=== PATIENT | female | born 1990 | race Caucasian/White ===

== ENCOUNTER 2025-04-24 13:02 | Emergency (ER) | payer BC, MEDICAID, SELFPAY ==
--- OUTSIDE RECORDS SUMMARY | 2025-04-24 13:04 | XMS_ITS | Clinical Summary ---
Author Organization [facility] Address [address] [place] [address] Care Team Providers Care Digital Production Manager Name Role Phone Stefani Iraheta MD Primary Care Provider Stefani Iraheta MD Unavailable [phone] Estephania Hicks MD Unavailable [phone] Val Bryant MD Unavailable [phone] Sorin Keene APRN TRIAL MANAGER Unavailable Unava ilable Allergies No known active allergies Medications Sertraline HCl (ZOLOFT PO) Take 100 mg by mouth daily Active levothyroxine (SYNTHROID/LEVOT HROID) 125 MCG tabletIndication s:Neftali's thyroiditis Take 1 tablet (125 mcg) by mouth daily 90 tablet 3 8 Active Additional Information Patient taking differently: 150 mcgOral DAILY, Reported on 02/21/2022 ferrous sulfate (FEROSUL) 325 (65 Fe) MG tablet Take 325 mg by mouth 2 times daily Active HYDROXYprogester one caproate (SHIELA) 250 MG/ML injection Inject 250 mg into the muscle every 7 days Active Vit-Fe Fumarate-FA ( MULTIVITAMIN W/IRON) 27-0.8 MG tablet Take 1 tablet by mouth daily Active Active Problems Patient Care Coordination No te Formatting of this note is d ifferent from the original. 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 2) History of after PTL - on 17-OHP- cervical lengths 3) Hypothyroid 4) uterine synechia 5) Anxiety- started Zoloft @ 16 weeks DEMOGRAPHICS: Patient contact info: [address] [facility] [phone] (home) Telephone Information: Partner's name: Baby's name: REFERRING PROVIDER(S): 1) Primary OB Provider: OGI 2) Other Sub-Specialty Provider: 3) Anticipated Pediatric Provider: CARE PLAN: 1) Ultrasounds - Growth q 3-4 weeks 04/11, 04/25 2) Other Imaging - Echo 04/12, repeat at 25 weeks (05/31)- no further follow up needed 3) surveillance - 4) Relocation - 5) care with - OGI 6) Labs - (look in media tab / care everywhere for results) Blood type: A+ HepBSAg: Neg Rubella: IMMUNE RPR: NR HIV: Neg GCT: Hgb: T/s preop: GBS: Vaccines Tdap: Flu: 7) care team and consultations - A) Genetic Counselor - B) Neonatology - C) Social Work - D) DELIVERY PLAN: 1) Hospital - 2) Gestational age - 3) Route - 4) Notifications in labor - 5) Specimen collection in labor / at delivery - (cord blood for karyotype & [facility]) Consent?? BABY PLAN: 1) Baby to go to NICU, Nursery (presuming no unforseen reason for NICU admit) 2) Imaging to be done - A) immediately after - B) prior to hospital discharge - post-levi echocardiogram is recommended to evaluate pulmonary valve annulus. Post- echocardiogram should be performed within 24-48 hours of life. 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 labor 04/25/2014 S/P section 04/25/2014 Resolved Problems Problem Noted Date Diagnosed Date Resolved Date Hypothyroidism 11/13/2016 12/02/2016 Hypothyroidism 06/13/2014 10/30/2015 Social History Tobacco Use Types Packs/Day Years Used Date Smoking Tobacco: Never Smokeless Tobacco: Never Alcohol Use Standard Drinks/Week Comments No 0 (1 standard drink = 0.6 oz pur e alcohol) Phoenix Depression Scale Answer Date Recorded Phoenix Depression Score 0 09/02/2020 Last EPDS Self Harm Result Not on file 09/02 Adolescent Education Answer Date Record ed Getting School Help Needed Not on file 07/20 Comments No Sex and Gender Information Value Date Recorded Sex Assigned at Not on file Legal Sex Female 4:33 AM PAPER ROLLER Gender Identity Not on file Sexual Orientation Not on file Last Filed Vital Signs Vital Sign Reading Time Taken Comments Blood Pressure 120/68 02/27/2022 1:00 PM CDT Pulse 72 02/21/2022 11:44 AM CDT Temperature 36.8 C (98.24 F) 02/27/2022 12:48 PM CDT Respiratory Rate 16 02/27/2022 1:00 PM CDT Oxygen Saturation 99% 09/02/2020 4:00 AM PAPER ROLLER Inhaled Oxygen Concentration - - Weight 74.8 kg (165 lb) 09/01/2020 5:32 AM PAPER ROLLER Height 172.7 cm (5' 8) 09/01/2020 5:32 AM PAPER ROLLER Body Mass Index 25.09 09/01/2020 5:32 AM PAPER ROLLER Plan of Treatment Not on file Medical Devices Implanted Type Area Drug And Alcohol Treatment Specialist Device Identifier Shelf Expiration Date Model / Serial / Lot Imp Breast 350ml Gel Round Mp [id number] Implanted:Qty : 1 on 12/13/2016 by Sadiq Damon MD at [facility] Breast Implant/Tiss ue Video Tape Transferrer Left: [employer] 10/06/2021 [id number] C / [id number] / [id number] Imp Breast 350ml Gel Round Mp [id number] Implanted:Qty : 1 on 12/13/2016 by Sadiq Damon MD at [facility] Breast Implant/Tiss ue Video Tape Transferrer Right: Breast [employer] 10/06/2021 [id number] C / [id number] Advance Directives For more information, please contact: [phone] * Full Code (Latest Code Status on File) Date Activated Date Inactivated Comments 09/02/2020 12:57 AM 09/04/2020 2:11 PM All basic and advanced life-sustaining interventions are performed as appropriate Question Answer Comments Code status determined by: Discussion with patie nt/ legal decision maker Care Teams Digital Production Manager Relationship Specialty Start Date End Date Stefani Iraheta MD [address] [place] [address] PCP - General drawing in machine tender helper 11/18/13 Stefani Iraheta MD [address] [place] [address] Referring Physician drawing in machine tender helper 12/24/13 [place] [address] [place] [address] Internal Medicine 08/08/15 Val Bryant MD [address] [place] [address] Maternal & Medicine 08/02/20 Sorin Keene APRN TRIAL MANAGER [address] [place] [address] Nurse Practitioner Nurse Practitioner 08/02/20
--- OUTSIDE RECORDS SUMMARY | 2025-04-24 13:04 | XMS_ITS | Encounter Summary ---
Author Organization [facility] Address [address] [place] [address]. [place] [address] Care Team Providers Care Soil Fertility Specialist Name Role Phone Stefani Iraheta MD Primary Care Provider [phone] Stefani Iraheta MD Unavailable [phone] Estephania Hicks MD Unavailable [phone] Val Bryant MD Unavailable [phone] Sorin Keene APRN FARM PLANNER Unavailable Unava ilable Val Bryant MD Unavailable [phone] Sorin Keene APRN FARM PLANNER Unavailable Unava ilable Val Bryant MD Unavailable [phone] Val Bryant MD Unavailable [phone] Encounter Details Date Type Department Care Team (Late st Contact Info) Description 08/07/2020 Orders Only [facility] [address] [phone] Stfeani Iraheta MD [address] [place] [address] Preop examination (Primary Dx) Social History Tobacco Use Types Packs/Day Years Used Date Smoking Tobacco: Never Smokeless Tobacco: Never Alcohol Use Standard Drinks/Week Comments No 0 (1 standard drink = 0.6 oz pur e alcohol) Comments Yes Sex and Gender Information Value Date Recorded Sex Assigned at Not on file Legal Sex Female 4:33 AM MANAGER FIELD Gender Identity Not on file Sexual Orientation Not on file COVID-19 Exposure Response Date Recorded In the last month, have you been in contact with someone who was confirmed or suspected to have Coronavirus / COVID-19? No / Unsure 08/07/2020 2:06 PM CDT documented as of this encounter Plan of Treatment Not on file documented as of this encounter Results * (ABNORMAL) CBC with platelets (08/31/2020 11:06 AM MANAGER FIELD) WBC 5.0 4.0 - 11.0 10e9/L 08/31/2020 11:27 AM [facility] RBC Count 3.91 3.8 - 5.2 10e12/L 08/31/2020 11:27 AM [facility] Hemoglobin 10.9(L) 11.7 - 15.7 g/dL 08/31/2020 11:27 AM [facility] Hematocrit 33.5(L) 35.0 - 47.0 % 08/31/2020 11:27 AM [facility] MCV 86 78 - 100 fl 08/31/2020 11:27 AM [facility] MCH 27.9 26.5 - 33.0 pg 08/31/2020 11:27 AM [facility] MCHC 32.5 31.5 - 36.5 g/dL 08/31/2020 11:27 AM [facility] RDW 16.2(H) 10.0 - 15.0 % 08/31/2020 11:27 AM [facility] Platelet Count 239 150 - 450 10e9/L 08/31/2020 11:27 AM [facility] Blood specimen (specimen) 08/31/2020 11:06 AM MANAGER FIELD 08/31/2020 11:22 AM MANAGER FIELD us Stefani Iraheta MD LAB - BLOOD ORDERABLES Fi nal Result [facility] [address], [place] [address], [place] [phone] * Treponema Abs w Reflex to RPR and Titer (08/31/2020 11:06 AM MANAGER FIELD) Treponema Antibodies Nonreactive NR^Nonrea ctive 09/01/2020 9:[address] [facility] Comment: Methodology Change: Test performed on the DiaSorin Liaison XL by Treponema pallidum Total Antibodies Assay as of 01.04.2020. Blood specimen (specimen) 08/31/2020 11:06 AM MANAGER FIELD 08/31/2020 11:22 AM MANAGER FIELD us Stefani Iraheta MD LAB - BLOOD ORDERABLES Fi nal Result Performing Organization Address City/[facility]/ZIP Co de Phone Number [facility] [address] [place] [address] * ABO/Rh type and screen (08/31/2020 11:06 AM MANAGER FIELD) ABO A 08/31/2020 12:36 PM MANAGER FIELD [facility] RH(D) Pos [facility] Antibody Screen Neg 08/31/2020 12:36 PM MANAGER FIELD [facility] Test Valid Only At [facility] 08/31/2020 11:59 AM MANAGER FIELD [facility] Specimen Expires 09/03/2020 08/31/2020 11:59 AM MANAGER FIELD [facility] Blood specimen (specimen) 08/31/2020 11:06 AM MANAGER FIELD 08/31/2020 11:22 AM MANAGER FIELD us Stefani Iraheta MD LAB - BLOOD BANK TEST ORD ER Final Result [facility] [address] [address], [facility] [phone] documented in this encounter Visit Diagnoses Diagnosis Preop examination- Primary Preoperative examination, unspecified documented in this encounter Care Teams Soil Fertility Specialist Relationship Specialty Start Date End Date Stefani Iraheta MD [address] [place] [address] PCP - General oven press tender 11/18/13 Stefani Iraheta MD [address] [address] Referring Physician oven press tender 12/24/13 [place] [address] [place] [address] Internal Medicine 08/08/15 Val Bryant MD [address] [place] [address] Maternal & Medicine 08/02/20 Sorin Keene APRN FARM PLANNER [address] [place] [address] Nurse Practitioner Nurse Practitioner 08/02/20 Val Bryant MD [address] [place] [address] Assigned OBGYN Provider 09/09/21 02/02/22 Sorin Keene APRN FARM PLANNER Assigned Pediatric Specialist Provider 09/03/20 02/23/22 Val Bryant MD [address] [place] [address] Assigned OBGYN Provider 09/02/21 09/08/21 Val Bryant MD [address] [place] [address] Assigned OBGYN Provider 08/11/20 09/01/21 documented as of this encounter
--- OUTSIDE RECORDS SUMMARY | 2025-04-24 13:04 | XMS_ITS | Clinical Summary ---
Author Organization [facility] Address [address] [place] [address] Care Team Providers Care Casino Enforcement Agent Name Role Phone Jayshree Juarez MD Primary Care Provider Allergies Active Allergy Reactions Criticality Noted Date Comments Crab Hives High 03/09/2025 Tested Shrimp Hives High 03/09/2025 Tested Medications sertraline (ZOLOFT) 100 mg tabletIndicatio ns:Anxiety Take 1 Tablet (100 mg) by mouth once daily. 90 Tablet 3 08/19/20 24 Active levothyroxine (SYNTHROID) 100 mcg tabletIndicatio ns:Hypothyroidi sm due to Neftali thyroiditis Take 1 Tablet (100 mcg) by mouth before breakfast. 90 Tablet 3 08/20/20 24 Active EPINEPHrine (EPIPEN) 0.3 mg/0.3 mL auto-injectorIn dications:Shrim p allergy Inject 0.3 mg (1 Pen) intramuscular each time if needed for Allergic Reaction. 2 Each 3 08/23/20 24 Active valACYclovir (VALTREX) 1 gram tabletIndicatio ns:H/O cold sores TAKE 2 TABLETS (2 G) BY MOUTH 2 TIMES DAILY FOR 1 DAY. 4 Tablet 5 01/01/20 25 025 Discontinu ed(Reorder (E-cancel not sent)) valACYclovir 1 gram tabletIndicatio ns:H/O cold sores Take 2 Tablets (2 g) by mouth two times daily for 2 doses. 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 S/P section 04/25/2014 Hypothyroid 02/26/2013 Other specified screening(V28.89) 10/21 Pyelonephritis, unspecified 03/19/2007 Excessive growth affec ting management of mother, unspecified as to episode of care 03/18/2007 Herpes simplex with other specified complication s(054.79) Resolved Problems Problem Noted Date Diagnosed Date Resolved Date Threatened premature labor, unspecified as to episode of care 04/13/2007 08/06/2011 Depressive disorder, not elsewhere classified 03/18/20 07 02/26/2013 Extrinsic asthma, unspecified 03/18/2007 02/26/2013 Supervision of other normal 03/18/2007 Encounters Date Type Department Care Team Description 03/09/2025 4:05 PM CDT Office Visit [facility] [address] [place] [address] Jayshree Juarez MD Derm Problem (Mole check, mainly torso area) 03/09/2025 Travel 03/04/2025 Travel 03/01/2025 3:25 PM CDT Office Visit [facility] [address] [place] [address] Rachel Brand PA Lump 03/01/2025 Travel from Last 3 Months Immunizations Immunization Administration Dates Next Due COVID-19 VACCINE SPIKEVAX (M ODERNA 50MCG/0.5ML) 12YO+ PFS 07/30/2023 COVID-19 vaccine (Pfizer-Bio NTech 30mcg/0.3mL) PF, MDV 08/06/2021 Hepatitis A (Adult) 11/08/2010,09/27/2010 Hepatitis B (Adult) 11/08/2010,09/27/2010 Hepatitis B (Peds) 10/10/2003,08/30/2003 Human Papilloma Virus Vaccine 08/06/2011, 010,06/14/2010 INFLUENZA, IIV3 PF (AGE >= 6 MO) 08/06/2024 Influenza Intradermal PF 18-64 yrs 11/24/2012 Influenza, IIV3 (Age >=3 years) 08/06/2011,08/15 Influenza, IIV4 08/06/2023,08/08/2022 Influenza, IIV4 (=>6mos) MDV 08/03/2017 MMR 10/10/2003,08/30/2003 Tdap 02/15/2022, 0,03/11/2014,2010,08/06/2011 Family History Medical History Relation Name Comments Alcoholism Father Jerman Momin Depression Father Jerman Momin Diabetes Father Jerman Momin Psychiatric illness Father Jerman Momin depres midny Cancer-breast Maternal Aunt multiple aunts BRCA Cancer-ovarian Maternal Aunt multiple aunts BRCA BRCA2 Positive Mother Carmina Momin Hypertension Mother Carmina Momin BRCA2 Positive Sister Relation Name Status Comments Father Jerman Momin Maternal Aunt multiple aunts Alive Mother Carmina Momin Sister Social History Tobacco Use Types Packs/Day Years Used Date Smoking Tobacco: Never Smokeless Tobacco: Never Tobacco Cessation:Counseling Given: Yes Alcohol Use Standard Drinks/Week Comments Yes 0 (1 standard drink = 0.6 oz pur e alcohol) occ PHQ-2 Answer Date Recorded PHQ-2 TOTAL SCORE 0 08/19/2024 Social Connections Answer Date Recorded Do you often feel lonely or isolated from those around you? 0 08/19/2024 Financial Resource Strain Answer Date R ecorded Difficulty of Paying Living Expenses 3 08/19/2024 Difficulty of Paying Living Expenses Not on file 08/19/2024 Food Insecurity Answer Date Recorded Do you worry your food will run out before you are able to buy more? 1 08/19/2024 Transportation Needs Answer Date Record ed Does lack of transportation keep you from medica l appointments? 1 08/19/2024 Does lack of transportation keep you from work, meetings or getting things that you need? 1 08/19/2024 Housing Stability Answer Date Recorded What is your housing situation today? 1 08/19/2024 Utilities Answer Date Recorded Do you have trouble paying f or utilities (for example, heat, electricity, water, phone)? 1 08/19/2024 Comments No Sex and Gender Information Value Date Recorded Sex Assigned at Female 07/09/2021 10:22 AM CDT Legal Sex Female 5:40 AM MARKETING CONSULTANT Gender Identity Female 07/09/2021 10:22 AM CDT Sexual Orientation Straight 07/09/2021 10 :22 AM CDT Obstetrics History Para Term AB IAB SAB Ectopic Multiple Livin g Live Births 4 3 1 2 1 1 0 0 0 3 3 Date Outcome GA Total Labor Labor/2nd/3rd Weight Sex Type Anes PTL Brenda A1 A5 Name Clin 05/08 06 IAB 05/15 36w 4d 3.03 kg (6 lb 11 oz) M C-Sec tion Living Deandre 04/27 Term F CS-LT ranv Living 04/25 M C-Sec tion Living Last Filed Vital Signs Vital Sign Reading Time Taken Comments Blood Pressure 112/72 03/09/2025 4:12 PM CDT Pulse 72 03/09/2025 4:12 PM CDT Temperature 36.4 C (97.6 F) 10/28/2024 8:36 AM MARKETING CONSULTANT Respiratory Rate 16 03/20/2007 7:55 AM CDT Oxygen Saturation 100% 03/09/2025 4:12 PM CDT Inhaled Oxygen Concentration - - Weight 67 kg (147 lb 9.6 oz) 03/09/2025 4:12 PM CDT Height 172.1 cm (5' 7.75) 10/04/2024 9:55 AM CS T Body Mass Index 22.61 10/04/2024 9:55 AM MARKETING CONSULTANT Plan of Treatment Health Maintenance Due Date Last Done Comments COVID-19 vaccine series ( season) 2024 07/30/2023, 08/06/2021, 10/27/2020, Additional history exists Pap test for age 21-65 06/05/2025 2 (Completed outside of [facility]), 08/06/2011, 07/03/2007, Additional history exists Influenza Vaccine (#1) 2025 , 08/06/2023, 08/08/2022, Additional history exists Depression screening for age 12+ 08/19/2025 08/19/2024, 07/30/2023, 02/26/2019, Additional history exists BMI (ht and wt on same day) for age 18+ 10/04/2025 10/04/2024, 08/19/2024, 07/30/2023, Additional history exists Tetanus booster 02/16/2032 02/15/2022, 06/20, 03/11/2014, Additional history exists Hepatitis B series for 19+ Completed 11/08, 09/27/2010, 10/10/2003, Additional history exists HIV for age 15-65 Completed 07/30/2023 Hepatitis C screening for age 18-79 Completed 07/30/2023 Pneumococcal series for age 6-49 Aged Out No longer eligible based on patient's age to complete this topic Procedures Procedure Name Priority Date/Time Associated Diagnosis Comments TSH Routine 03/09/2025 5:05 PM CDT 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 ANTI HIV 1/2 Routine 07/30/2023 1:56 PM CDT Screening for HIV (human immunodeficiency virus) ANTI HCV Routine 07/30/2023 1:56 PM CDT Need for hepatitis C screening test PUBLIC RELATIONS THIN PREP PAP SCREEN IMAGED Routine 08/06/2011 12:06 PM CDT Screening for malignant neoplasm of the cervix from Last 3 Months or Most Recently Relevant to Health Maintenance Results * TSH (03/09/2025 5:05 PM CDT) TSH 2.00 mIU/L [facility] zurdo Garcia Comment: Reference Range > or = 20 Years 0.40-4.50 Ranges First trimester 0.26-2.66 Second trimester 0.55-2.73 Third trimester 0.43-2.91 Blood BLOOD SPECIMEN / Unknown 03/09/2025 5:05 PM CDT 03/09/2025 5:05 PM CDT us Jayshree Juarez MD CHEMISTRY Final R esult [facility] [address] [place] [address], [facility] [address] [place] [address] * ANTI HCV (07/30/2023 1:56 PM CDT) [facility] HEPATITIS C ANTIBODY Non-Reacti ve Non-React samira 07/30/2023 9:14 PM CDT [facility] Comment:Please note, per www .CDC.gov: If a patient is known to be at high risk of HCV infection, or is symptomatic, and the physician's suspicion of HCV infection is high, HCV RNA testing is often employed and is of diagnostic value, even after an initial negative anti-HCV test result. Blood BLOOD SPECIMEN / Unknown Venipuncture / Unknown 07/30/2023 1:56 PM CDT 07/30/2023 1:58 PM CDT Jayshree Juarez MD SEND OUTS Final R esult Performing Organization Address City/[facility]/ZIP Co de Phone Number [facility] [address] [place] [address], [place] * ANTI HIV 1/2 [[address].0] (07/30/2023 1:56 PM CDT) [facility] HIV-1/HIV-2 SCREEN Non-Reacti ve Non-Reacti ve 07/30/2023 9:43 PM CDT [facility] Comment:HIV-1 p24 and HIV-1/ HIV-2 Ab Not Detected. Blood BLOOD SPECIMEN / Unknown Venipuncture / Unknown 07/30/2023 1:56 PM CDT 07/30/2023 1:58 PM CDT Jayshree Juarez MD SEND OUTS Final R esult Performing Organization Address City/[facility]/ZIP Co de Phone Number [facility] [address] [place] [address], [place] * PUBLIC RELATIONS THIN PREP PAP SCREEN IMAGED (08/06/2011 12:06 PM CDT) [facility] CYTOLOGY CYTOPATHOLOGY REPORT [facility] Status: Final Status [id number] CLINICAL INFORMATION Last Date of LMP :07/15/11 Last Pap Date :2009 Last Pap Result :NIL ABN [place]/Bx Past 5 YRS :None Hormone Usage :None Menstrual Status :Regular Periods [place]/Bx done today :No Additional Information :None given HPV Request :HPV if ASCUS SPECIMEN SOURCE :Cervical/vaginal ThinPrep Vial, screening SPECIMEN ADEQUACY :Satisfactory for evaluation No endocervical component seen. INTERPRETATION/RES ULT Negative for intraepithelial lesion or malignancy (NIL) Cytology 1st Screener :carmela Signed by :carmela This specimen was screened by the FDA approved ThinPrep Imaging System and manually reviewed. NOTE: The Pap test is a screening technique, not a diagnostic procedure. It is used primarily to screen for squamous cancers and precursor lesions. Published studies have shown that it is subject to both false negative and false positive results. The pap test should not be used as the sole means to diagnose or exclude pre-malignant and malignant lesions. COLLECTED:08/06/11 ACCESSIONED: 08/07/11 SIGNED: 08/12/11 [facility] PAP [place] CODE NIL [facility] Cervical/Vaginal (Cervical/Vagina l) 08/06/2011 12:06 PM CDT 08/06/2011 12:04 PM CDT us Penny Rivers MD PATHOLOGY/CYTOLOGY Final Resu lt [facility] [place]NAL ZIP [address] [address] from Last 3 Months or Most Recently Relevant to Health Maintenance Insurance MEDICAID [facility] Advance Directives * Full Code (Latest Code Status on File) Date Activated Date Inactivated Comments 03/18/2007 11:40 PM 03/20/2007 1:40 PM Care Teams Casino Enforcement Agent Relationship Specialty Start Date End Date Jayshree Juarez MD [address] [facility] [address] PCP - General Family Practice 02/16/13
[2025-04-24 13:07] VITALS: BP 126/83; PULSE 68; RESP 20; TEMP 36.6; O2SAT 100; BMI 21.7
--- NOTE | 2025-04-24 13:57 | CRLHL7_ITS ---
For Patients: As a result of the Cures Act, medical imaging exams and procedure reports are released immediately into your electronic medical record. You may view this report before your referring provider. If you have questions, please contact your health care provider. INDICATION: Left chest pain, trauma, injury hit on her left side TECHNIQUE: Chest radiograph 2 views COMPARISON: None FINDINGS: Mediastinum: The mediastinum is normal in appearance. The heart silhouette is normal in size and morphology. Lung: Both lungs are unremarkable in appearance. No sign of pleural effusion seen. No pneumothorax is identified. Bone and Soft tissue: Trace dextroscoliosis of the thoracolumbar junction is noted. Mildly displaced fracture of the left lateral 7th rib is noted. IMPRESSION: 1. Mildly displaced fracture of the left lateral 7th rib is noted. Dictated by Dusty Muniz MD @ 04/24/2025 2:22:21 PM Dictated by: Dusty Muniz MD @ 04/24/2025 14:22:26 (Electronically Signed)
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
[2025-04-24 15:14] VITALS: BP 119/72; PULSE 74; RESP 20; TEMP 36.6
== END 2025-04-24 15:15 | disposition home or self-care (01) ==
PROVIDERS: Emergency Provider Emergency Medicine; PCP Family Medicine
DX: S22.32XA Fracture of one rib, left side, initial encounter for closed fracture (principal); Y93.83 Activity, rough housing and horseplay
CPT/HCPCS: 71046; 99282; 99283